=== PATIENT | female | born 1980 | race Caucasian/White ===

== ENCOUNTER 2018-10-12 16:32 | Emergency (ER) | payer SELFPAY ==
--- NOTE | 2018-10-12 17:28 | ER Document Report ---
ED Medical Screen (RME) - General Chief Complaint: Skin Problem Stated Complaint: POSSIBLE BUG BITE Time Seen by Provider: 10/12/18 17:24 - HPI Notes: 10/12/18 17:27 Patient is a 38-year-old female with history of Crohn's who presents complaining of continued infection to her left lower anterior leg with occasional purulence, scabbing, redness, and warmth that is been present for about 3 weeks. Patient states that it started as a small area and then has continued to spread and get worse despite 2 visits to [facility] and being placed once on Bactrim and the second time on Keflex. Denies SINHA, fever, neck pain, URI, CP, SOB, Abd pain, dysuria, back pain. I have treated and performed a rapid initial assessment of this patient. A comprehensive ED assessment and evaluation of the patient, analysis of test results and completion of medical decision making process will be conducted by additional ED providers. PHYSICAL EXAMINATION: GENERAL: Well-appearing, well-nourished and in no acute distress. A&Ox4. Answers questions appropriately. LUNGS: Breath sounds clear to auscultation bilaterally and equal. No wheezes rales or rhonchi. HEART: Regular rate and rhythm without murmurs, rubs, gallops. Lt LE: + Erythema, warmth, mild induration, open wound areas without passively active purulence noted at this time. No streaks. - Related Data Allergies/Adverse Reactions: hydrocodone Adverse Reaction (Verified 10/12/18 16:38) Physical Exam - Vital signs Vitals: Temp Pulse Resp BP Pulse Ox 98.2 F 94 18 123/84 98 10/12/18 16:35 10/12/18 16:35 10/12/18 16:35 10/12/18 16:35 10/12/18 16:35 Course - Vital Signs Vital signs: Temp Pulse Resp BP Pulse Ox 98.2 F 94 18 123/84 98 10/12/18 16:35 10/12/18 16:35 10/12/18 16:35 10/12/18 16:35 10/12/18 16:35
[2018-10-12] MEDS ORDERED: CLINDAMYCIN 600 MG/D5W RTU 600 MG/50 ML RTUPB IV ONE (17:29)
--- NOTE | 2018-10-12 17:56 | RADIOLOGY REPORT (SQ) ---
EXAM DESCRIPTION: TIBIA FIBULA LEFT COMPLETED DATE/TIME: 10/12/2018 5:45 pm REASON FOR STUDY: left lower anterior leg infection COMPARISON: None. NUMBER OF VIEWS: Two views. TECHNIQUE: Two radiographic images acquired of the left tibia and fibula to include the knee and ank le in at least one projection. LIMITATIONS: None. FINDINGS: MINERALIZATION: Normal. BONES: No acute fracture or dislocation. No worrisome bone lesions. SOFT TISSUES: No radiopaque foreign body. OTHER: No other significant finding. IMPRESSION: NO RADIOGRAPHIC EVIDENCE OF ACUTE INJURY. TECHNICAL DOCUMENTATION: JOB ID: [id number] [id number] 2010 [employer]- All Rights Reserved Reading location - IP/workstation name: [email or web address]
[2018-10-12 18:13] LABS: ABSOLUTE BASOPHILS # (AUTO) 0.1 10^3/uL (0.0-0.2); ABSOLUTE EOSINOPHILS # (AUTO) 0.2 10^3/uL (0.0-0.6); ABSOLUTE LYMPHOCYTES (AUTO) 1.8 10^3/uL (0.5-4.7); ABSOLUTE MONOCYTES (AUTO) 0.7 10^3/uL (0.1-1.4); BASOPHILS % (AUTO) 0.7 % (0-2); EOSINOPHILS % (AUTO) 1.8 % (0-6); HEMOGLOBIN 12.9 g/dL (12.0-15.5); LYMPHOCYTES % (AUTO) 20.6 % (13-45); MEAN CORPUSCULAR HGB CONC 33.1 g/dL (32.0-36.0); MEAN CORPUSCULAR VOLUME 85 fl (80-97); MONOCYTES % (AUTO) 8.5 % (3-13); PLATELET COUNT 448 10^3/uL (150-450); RED BLOOD COUNT 4.61 10^6/uL (3.72-5.28); RED CELL DISTRIBUTION WIDTH 18.2 % (11.5-14.0); SEGMENTED NEUTROPHILS % (AUTO) 68.4 % (42-78); TOTAL CELLS COUNTED % (AUTO) 100 %; WHITE BLOOD COUNT 8.8 10^3/uL (4.0-10.5)
[2018-10-12 18:28] LABS: ANION GAP 9 (5-19); BLOOD UREA NITROGEN 8 mg/dL (7-20); CALCIUM 10.1 mg/dL (8.4-10.2); CARBON DIOXIDE 27 mmol/L (22-30); CHLORIDE 102 mmol/L (98-107); GLUCOSE 77 mg/dL (75-110); POTASSIUM 4.1 mmol/L (3.6-5.0); SODIUM 138.2 mmol/L (137-145)
--- NOTE | 2018-10-12 20:08 | ER Document Report ---
ED General - General Chief Complaint: Skin Problem Stated Complaint: POSSIBLE BUG BITE Time Seen by Provider: 10/12/18 17:24 Mode of Arrival: Ambulatory Information source: Patient TRAVEL OUTSIDE OF THE U.[place] IN LAST 30 DAYS: No - HPI Patient complains to provider of: Cellulitis Onset: Other - 3 weeks - Related Data Allergies/Adverse Reactions: hydrocodone Adverse Reaction (Verified 10/12/18 16:38) Past Medical History - Social History Smoking Status: Current Every Day Smoker Chew tobacco use (# tins/day): No Frequency of alcohol use: Rare Drug Abuse: None Patient has suicidal ideation: No Patient has homicidal ideation: No Renal/ Medical History: Denies: Hx Peritoneal Dialysis Physical Exam - Vital signs Vitals: Temp Pulse Resp BP Pulse Ox 98.2 F 94 18 123/84 98 10/12/18 16:35 10/12/18 16:35 10/12/18 16:35 10/12/18 16:35 10/12/18 16:35 Course - Vital Signs Vital signs: Temp Pulse Resp BP Pulse Ox 98.2 F 94 18 123/84 98 10/12/18 16:35 10/12/18 16:35 10/12/18 16:35 10/12/18 16:35 10/12/18 16:35 - Laboratory Result Diagrams: 10/12/18 17:49 10/12/18 17:49 Laboratory results interpreted by me: 10/12/18 10/12/18 17:49 17:49 RDW 18.2 H Creatinine 0.41 L
--- NOTE | 2018-10-12 20:22 | ER Document Report ---
ED General - General Chief Complaint: Skin Problem Stated Complaint: POSSIBLE BUG BITE Time Seen by Provider: 10/12/18 17:24 Mode of Arrival: Ambulatory Information source: Patient TRAVEL OUTSIDE OF THE [place] IN LAST 30 DAYS: No - HPI Patient complains to provider of: Left lower leg infection Onset: Other - 3 weeks Onset/Duration: Constant Quality of pain: Sharp Pain Level: 4 Associated symptoms: denies: Chills, Fever Exacerbated by: Denies Relieved by: Denies Similar symptoms previously: No Recently seen / treated by doctor: No Notes: 38-year-old female with history of Crohn's disease but not on any immune modulating drugs coming in today redness swelling and ulcers and cellulitis. No fevers or chills. Has tried Keflex and Bactrim to no avail. - Related Data Allergies/Adverse Reactions: hydrocodone Adverse Reaction (Verified 10/12/18 16:38) Past Medical History - General Information source: Patient - Social History Smoking Status: Current Every Day Smoker Chew tobacco use (# tins/day): No Frequency of alcohol use: Rare Drug Abuse: None Family History: Reviewed & Not Pertinent Patient has suicidal ideation: No Patient has homicidal ideation: No Renal/ Medical History: Denies: Hx Peritoneal Dialysis Review of Systems - Review of Systems Notes: Constitutional: No fevers. No chills. EENT: No eye redness. No eye pain. No ear pain. No sore throat. Cardiovascular: No chest pain. No palpitations. Respiratory: No cough. No shortness of breath. No respiratory distress. Gastrointestinal: No abdominal pain. No nausea, vomiting, or diarrhea. Genitourinary: Atraumatic. No lesions. No pain. No discharge. Musculoskeletal: Atraumatic. No swelling. No deformities. Skin: Positive infection left lower leg Lymphatic: No swollen lymph nodes. Neurologic: No headache. No syncope. Psychiatric: No suicidal or homicidal ideation. Physical Exam - Vital signs Vitals: Temp Pulse Resp BP Pulse Ox 98.2 F 94 18 123/84 98 10/12/18 16:35 10/12/18 16:35 10/12/18 16:35 10/12/18 16:35 10/12/18 16:35 - Notes Notes: General: Well-developed, well-nourished. In no acute distress. Non-toxic appearing. Cardiac: Well-perfused. Regular rate and rhythm. No murmurs, rubs, or gallops. Pulmonary: No respiratory distress. No cyanosis. Bilateral lung fiels are clear to auscultation. Abdominal: Non-distended. Non-rigid. Bowels sounds are present in all four quadrants. No guarding or rebound. HEENT: Head is atraumatic. Conjunctivae not reddened. No tearing. PERRL. EOMI. Orbits atraumatic. No periorbital swelling or erythema. Oropharynx is without erythema, swelling, or exudates. Neck: Supple. No adenopathy. No meningismus. Dermatologic: Warm with good turgor. No rash. Atraumatic. Chest: Atraumatic. No chest wall tenderness to palpation. Musculoskeletal: Redness warmth and multiple shallow ulcers to the left lower tib-fib region. Distal neurovascular exam is intact Genitourinary: Examination deferred Neurologic: No gross neurologic deficits. Psychiatric: Normal mood. Course - Re-evaluation Re-evalutation: 10/12/18 20:31 Lab work is reassuring. Will discharge home on clindamycin and pain medication recheck 2 days - Vital Signs Vital signs: Temp Pulse Resp BP Pulse Ox 98.2 F 94 18 123/84 98 10/12/18 16:35 10/12/18 16:35 10/12/18 16:35 10/12/18 16:35 10/12/18 16:35 - Laboratory Result Diagrams: 10/12/18 17:49 10/12/18 17:49 Laboratory results interpreted by me: 10/12/18 10/12/18 17:49 17:49 RDW 18.2 H Creatinine 0.41 L Discharge - Discharge Clinical Impression: Lower extremity cellulitis Qualifiers: Laterality: left Qualified Code(s): L03.116 - Cellulitis of left lower limb Condition: Good Disposition: HOME, SELF-CARE Instructions: Cellulitis ([facility]) Prescriptions: Hydrocodone/Acetaminophen [[place] 5-325 mg Tablet] 1 tab PO Q6HP PRN #12 tablet PRN Reason: Clindamycin HCl 300 mg PO Q6H 10 Days #40 capsule Referrals: [facility] [Provider Group] - Follow up as needed
[2018-10-12 20:54] VITALS: BP 111/62
== END 2018-10-12 20:56 | disposition home or self-care (01) ==
LOC: ER 16:32
DX: L03.116 Cellulitis of left lower limb (principal); F17.200 Nicotine dependence, unspecified, uncomplicated; Z88.6 Allergy status to analgesic agent
CPT/HCPCS: 36415; 80048; 85025; 87070; 87205; 96365; 99283

== ENCOUNTER 2018-10-25 11:37 | Emergency (ER) | payer SELFPAY ==
[2018-10-25 11:45] VITALS: BP 124/70
--- NOTE | 2018-10-25 13:02 | ER Document Report ---
ED Medical Screen (RME) - General Chief Complaint: Rash Stated Complaint: RASH Time Seen by Provider: 10/25/18 12:31 Mode of Arrival: Wheelchair Information source: Patient Notes: She presents to the emergency department with enlarging wound to her left lower leg started 1 month ago. Patient reports she has been on 3 different antibiotics. Evaluated at [facility] twice and here at [facility] once. Reports site is larger. Erythema with dark areas noted. Several irregular dark open wounds noted. patient complains of severe pain. Denies fever. Denies IV drug use. I have greeted and performed a rapid initial assessment of this patient. A comprehensive ED assessment and evaluation of the patient, analysis of test results and completion of the medical decision making process will be conducted by additional ED providers. Dictation of this chart was performed using voice recognition software; therefore, there may be some unintended grammatical errors. TRAVEL OUTSIDE OF THE U.S. IN LAST 30 DAYS: No - Related Data Allergies/Adverse Reactions: hydrocodone Adverse Reaction (Verified 10/12/18 16:38) Past Medical History Renal/ Medical History: Denies: Hx Peritoneal Dialysis Past Surgical History: Reports: Hx Abdominal Surgery - bowel resection, Hx Appendectomy, Hx Bowel Surgery, Hx Hysterectomy, Hx Tonsillectomy Physical Exam - Vital signs Vitals: Temp Pulse Resp BP Pulse Ox 98.3 F 77 16 124/70 99 10/25/18 11:43 10/25/18 11:43 10/25/18 11:43 10/25/18 11:43 10/25/18 11:43 Course - Vital Signs Vital signs: Temp Pulse Resp BP Pulse Ox 98.3 F 77 16 124/70 99 10/25/18 11:43 10/25/18 11:43 10/25/18 11:43 10/25/18 11:43 10/25/18 11:43
--- NOTE | 2018-10-25 13:48 | RADIOLOGY REPORT (SQ) ---
EXAM DESCRIPTION: TIBIA FIBULA LEFT COMPLETED DATE/TIME: 10/25/2018 1:26 pm REASON FOR STUDY: wound, pain COMPARISON: 10/12/2018 NUMBER OF VIEWS: Two views. TECHNIQUE: Two radiographic images acquired of the left tibia and fibula to include the knee and ank le in at least one projection. LIMITATIONS: None. FINDINGS: MINERALIZATION: Normal. BONES: No acute fracture or dislocation. No worrisome bone lesions. SOFT TISSUES: No obvious swelling or foreign body. OTHER: No other significant finding. IMPRESSION: NEGATIVE STUDY OF THE LEFT TIBIA AND FIBULA. NO RADIOGRAPHIC EVIDENCE OF ACUTE INJURY. TECHNICAL DOCUMENTATION: JOB ID: [id number] [employer]- All Rights Reserved Reading location - IP/workstation name: [email or web address]
[2018-10-25 14:07] LABS: ABSOLUTE BASOPHILS # (AUTO) 0.1 10^3/uL (0.0-0.2); ABSOLUTE EOSINOPHILS # (AUTO) 0.1 10^3/uL (0.0-0.6); ABSOLUTE LYMPHOCYTES (AUTO) 1.6 10^3/uL (0.5-4.7); ABSOLUTE MONOCYTES (AUTO) 0.4 10^3/uL (0.1-1.4); ABSOLUTE NEUT (AUTO) 6.7 10^3/uL (1.7-8.2); BASOPHILS % (AUTO) 0.6 % (0-2); EOSINOPHILS % (AUTO) 1.6 % (0-6); HEMATOCRIT 39.9 % (36.0-47.0); HEMOGLOBIN 13.6 g/dL (12.0-15.5); LYMPHOCYTES % (AUTO) 18.1 % (13-45); MEAN CORPUSCULAR HEMOGLOBIN 28.4 pg (27.0-33.4); MEAN CORPUSCULAR VOLUME 83 fl (80-97); MONOCYTES % (AUTO) 4.8 % (3-13); PLATELET COUNT 414 10^3/uL (150-450); RED BLOOD COUNT 4.78 10^6/uL (3.72-5.28); RED CELL DISTRIBUTION WIDTH 16.5 % (11.5-14.0); SEGMENTED NEUTROPHILS % (AUTO) 74.9 % (42-78); TOTAL CELLS COUNTED % (AUTO) 100 %
[2018-10-25 14:12] LABS: APPEARANCE,URINE SLIGHTLY-CLOUDY; BILIRUBIN,URINE NEGATIVE (NEGATIVE); COLOR,URINE YELLOW; GLUCOSE, URINE NEGATIVE (NEGATIVE); KETONES,URINE NEGATIVE (NEGATIVE); LEUKOCYTE ESTERASE,URINE TRACE (NEGATIVE); NITRITE,URINE NEGATIVE (NEGATIVE); PROTEIN,URINE NEGATIVE (NEGATIVE); URINE SPECIFIC GRAVITY 1.011; UROBILINOGEN,URINE NEGATIVE mg/dL (<2.0)
[2018-10-25 14:28] LABS: ALANINE AMINOTRANSFERASE 15 U/L (9-52); ALBUMIN 4.2 g/dL (3.5-5.0); ALKALINE PHOSPHATASE 75 U/L (38-126); ANION GAP 8 (5-19); ASPARTATE AMINO TRANSFERASE 17 U/L (14-36); BILIRUBIN,DIRECT 0.2 mg/dL (0.0-0.4); BILIRUBIN,TOTAL 0.2 mg/dL (0.2-1.3); BLOOD UREA NITROGEN 4 mg/dL (7-20); CALCIUM 8.9 mg/dL (8.4-10.2); CARBON DIOXIDE 27 mmol/L (22-30); CHLORIDE 105 mmol/L (98-107); GLUCOSE 91 mg/dL (75-110); POTASSIUM 3.3 mmol/L (3.6-5.0); SODIUM 140.1 mmol/L (137-145); TOTAL PROTEIN 7.9 g/dL (6.3-8.2)
[2018-10-25 18:16] LABS: URINE AMPHETAMINES SCREEN NEGATIVE; URINE BARBITURATES SCREEN NEGATIVE; URINE BENZODIAZEPINES SCREEN NEGATIVE; URINE COCAINE SCREEN NEGATIVE; URINE MARIJUANA (THC) SCREEN NEGATIVE; URINE METHADONE SCREEN NEGATIVE; URINE PHENCYCLIDINE SCREEN NEGATIVE
[2018-10-25] MEDS ORDERED: METHYLPREDNISOLONE INJ 125 MG/2 ML SDV IV ONE (18:22)
[2018-10-25] MEDS ORDERED: MORPHINE SULFATE 10 MG/ML INJ IV ONE (18:22)
[2018-10-25] MEDS ORDERED: ONDANSETRON HCL INJ/PF 4 MG/2 ML SDV IV ONE (18:22)
--- NOTE | 2018-10-25 19:04 | ER Document Report ---
ED General - General Chief Complaint: Rash Stated Complaint: RASH Time Seen by Provider: 10/25/18 12:31 Mode of Arrival: Wheelchair TRAVEL OUTSIDE OF THE [place]. IN LAST 30 DAYS: No - HPI Notes: Patient is a 38-year-old female who presents to the emergency department for evaluation of pain and wounds on her left leg. She states this started as 1 almost puncture wound appearing site. She denies any injury. She states that she is developed several more ulcerations that have become confluent. She states that she has been on multiple rounds of antibiotics without improvement. She was seen here once, advised it [place] months. She denies any fevers or chills. She denies any nausea or vomiting. She just moved to the area. She currently does not have any medical coverage, is awaiting Medicaid approval. She has a history of Crohn's disease. She does not have frequent flares. She did have a colostomy that was reversed about a year ago. She denies any abdominal pain. No other acute complaints or concerns. - Related Data Allergies/Adverse Reactions: hydrocodone Adverse Reaction (Verified 10/12/18 16:38) Past Medical History - General Information source: Patient - Social History Smoking Status: Current Every Day Smoker Frequency of alcohol use: None Drug Abuse: None Family History: Reviewed & Not Pertinent Patient has suicidal ideation: No Patient has homicidal ideation: No Renal/ Medical History: Denies: Hx Peritoneal Dialysis GI Medical History: Reports: Hx Crohn's Disease Past Surgical History: Reports: Hx Abdominal Surgery - bowel resection, Hx Appendectomy, Hx Bowel Surgery, Hx Hysterectomy, Hx Tonsillectomy Review of Systems - Review of Systems Constitutional: No symptoms reported EENT: No symptoms reported Cardiovascular: No symptoms reported Respiratory: No symptoms reported Gastrointestinal: No symptoms reported Genitourinary: No symptoms reported Musculoskeletal: No symptoms reported Skin: No symptoms reported Neurological/Psychological: No symptoms reported Physical Exam - Vital signs Vitals: Temp Pulse Resp BP Pulse Ox 98.3 F 77 16 124/70 99 10/25/18 11:43 10/25/18 11:43 10/25/18 11:43 10/25/18 11:43 10/25/18 11:43 - Notes Notes: Vital signs reviewed, please refer to chart. Head is normocephalic, atraumatic. Pupils equal round, reactive to light. Neck is supple without meningismus. Heart is regular rate and rhythm. Lungs are clear to auscultation bilaterally. Abdomen is soft, nontender, normoactive bowel sounds throughout. Extremities without cyanosis, clubbing. Posterior calves are nontender. Peripheral pulses are equal. Examination of the skin yields no chronic appearing ulcerations to the left anterior [place]. There is some surrounding erythema but it appears more reactive. There is markedly tenderness. There is necrotic appearing tissue under healthy appearing skin as well. Neurovascularly intact distally. Course - Re-evaluation Re-evalutation: 10/25/18 19:00 Presents to the emergency department for evaluation. Laboratory investigations as ordered through triage. X-ray was found to be negative as well. 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 I explained her the importance of getting GI follow-up and control of her Crohn's disease. She voiced understanding to this. She was given IV Solu-Medrol. I will send her home with a prednisone taper, referral on to [facility]. She is to return to the ED with worsening or new concerning symptoms of any sort. - Vital Signs Vital signs: Temp Pulse Resp BP Pulse Ox 98.3 F 77 16 124/70 99 10/25/18 11:43 10/25/18 11:43 10/25/18 11:43 10/25/18 11:43 10/25/18 11:43 - Laboratory Result Diagrams: 10/25/18 13:44 10/25/18 13:44 Laboratory results interpreted by me: 10/25/18 10/25/18 10/25/18 13:44 13:44 13:44 RDW 16.5 H Potassium 3.3 L BUN 4 L Creatinine 0.44 L Ur Leukocyte Esterase TRACE H Discharge - Discharge Clinical Impression: Pyoderma gangrenosum Condition: Stable Disposition: HOME, SELF-CARE Additional Instructions: Your diagnosis today is likely pyoderma gangrenosum. This is related to your Crohn's disease. He will be treated with steroids, please take them all until they are gone. You can start these medications tomorrow. Keep wounds clean with soap and water. Follow-up with [facility], referral information is below. Return to the emergency department with worsening or new concerning symptoms.
== END 2018-10-25 19:19 | disposition home or self-care (01) ==
LOC: ER 11:37
DX: K50.90 Crohn's disease, unspecified, without complications (principal); L88 Pyoderma gangrenosum; F17.200 Nicotine dependence, unspecified, uncomplicated; Z90.710 Acquired absence of both cervix and uterus
CPT/HCPCS: 99283; 96374; 96375; 36415; 87040; 84703; 85025; 81025; 80053; 81001; 80307; 73590; J2930; J2270; J2405

== ENCOUNTER 2019-03-14 19:18 | Emergency (ER) | payer OTHER ==
[2019-03-14] MEDS ORDERED: ONDANSETRON 4 MG TAB.RAPDIS PO ONE (19:58)
[2019-03-14] MEDS ORDERED: DICYCLOMINE HCL 20 MG TABLET PO ONE (19:58)
--- NOTE | 2019-03-14 20:00 | ER Document Report ---
ED Medical Screen (RME) - General Chief Complaint: Abdominal Pain Stated Complaint: ABDOMINAL PAIN,NAUSEA,DIARRHEA,HAS CROHNS Time Seen by Provider: 03/14/19 19:50 Notes: Patient is a 38-year-old female who presents the emergency department with a chief complaint of right lower quadrant abdominal pain. Patient states that it started around 130 last night. When she got home from work she used heating pad to help with the pain. Patient started last menstrual cycle was in 2006, as she had a partial hysterectomy. Patient states that she still has both ovaries. Patient has a history of Crohn's disease and had an appendectomy when she had a bowel resection at that time. Patient states that the pain goes from her right lower quadrant and moves line to her navel. She denies any dysuria. Exam: Tender right lower quadrant abdomen. I have greeted and performed a rapid initial assessment of this patient. A comprehensive ED assessment and evaluation of the patient, analysis of test results and completion of medical decision making process will be conducted by an additional ED providers. TRAVEL OUTSIDE OF THE U.S. IN LAST 30 DAYS: No - Related Data Allergies/Adverse Reactions: hydrocodone Adverse Reaction (Verified 10/12/18 16:38) Past Medical History - Social History Chew tobacco use (# tins/day): No Frequency of alcohol use: Rare Drug Abuse: None Renal/ Medical History: Denies: Hx Peritoneal Dialysis GI Medical History: Reports: Hx Crohn's Disease Past Surgical History: Reports: Hx Abdominal Surgery - bowel resection, Hx Appendectomy, Hx Bowel Surgery, Hx Hysterectomy, Hx Tonsillectomy Physical Exam - Vital signs Vitals: Temp Pulse BP Pulse Ox 97.7 F 87 114/80 99 03/14/19 19:26 03/14/19 19:26 03/14/19 19:26 03/14/19 19:26 Course - Vital Signs Vital signs: Temp Pulse Resp BP Pulse Ox 97.7 F 87 114/80 99 03/14/19 19:26 03/14/19 19:26 03/14/19 19:26 03/14/19 19:26
[2019-03-14 20:40] LABS: ABSOLUTE EOSINOPHILS # (AUTO) 0.1 10^3/uL (0.0-0.6); ABSOLUTE LYMPHOCYTES (AUTO) 1.4 10^3/uL (0.5-4.7); ABSOLUTE MONOCYTES (AUTO) 0.8 10^3/uL (0.1-1.4); BASOPHILS % (AUTO) 0.4 % (0-2); HEMOGLOBIN 14.5 g/dL (12.0-15.5); LYMPHOCYTES % (AUTO) 12.3 % (13-45); MEAN CORPUSCULAR HEMOGLOBIN 29.3 pg (27.0-33.4); MEAN CORPUSCULAR HGB CONC 33.9 g/dL (32.0-36.0); MEAN CORPUSCULAR VOLUME 87 fl (80-97); MONOCYTES % (AUTO) 7.1 % (3-13); PLATELET COUNT 306 10^3/uL (150-450); RED BLOOD COUNT 4.97 10^6/uL (3.72-5.28); RED CELL DISTRIBUTION WIDTH 14.9 % (11.5-14.0); SEGMENTED NEUTROPHILS % (AUTO) 79.2 % (42-78); TOTAL CELLS COUNTED % (AUTO) 100 %; WHITE BLOOD COUNT 11.4 10^3/uL (4.0-10.5)
[2019-03-14 20:41] LABS: APPEARANCE,URINE CLEAR; BILIRUBIN,URINE NEGATIVE (NEGATIVE); COLOR,URINE YELLOW; GLUCOSE, URINE NEGATIVE (NEGATIVE); KETONES,URINE NEGATIVE (NEGATIVE); LEUKOCYTE ESTERASE,URINE NEGATIVE (NEGATIVE); NITRITE,URINE NEGATIVE (NEGATIVE); PROTEIN,URINE NEGATIVE (NEGATIVE); UROBILINOGEN,URINE NEGATIVE mg/dL (<2.0)
[2019-03-14 21:04] LABS: ALBUMIN 4.4 g/dL (3.5-5.0); ALKALINE PHOSPHATASE 60 U/L (38-126); ANION GAP 10 (5-19); ASPARTATE AMINO TRANSFERASE 23 U/L (14-36); BILIRUBIN,DIRECT 0.1 mg/dL (0.0-0.4); BILIRUBIN,TOTAL 0.3 mg/dL (0.2-1.3); BLOOD UREA NITROGEN 11 mg/dL (7-20); CALCIUM 9.5 mg/dL (8.4-10.2); CARBON DIOXIDE 25 mmol/L (22-30); CHLORIDE 107 mmol/L (98-107); GLUCOSE 84 mg/dL (75-110); POTASSIUM 4.3 mmol/L (3.6-5.0); TOTAL PROTEIN 7.5 g/dL (6.3-8.2)
--- NOTE | 2019-03-14 22:44 | ER Document Report ---
ED GI/ - General Chief Complaint: Abdominal Pain Stated Complaint: ABDOMINAL PAIN,NAUSEA,DIARRHEA,HAS CROHNS Time Seen by Provider: 03/14/19 19:50 Mode of Arrival: Ambulatory Information source: Patient Notes: Patient is a 38-year-old female who presents the emergency department with a chief complaint of right lower quadrant abdominal pain. Patient states that it started around 130 last night. When she got home from work she used heating pad to help with the pain. Patient started last menstrual cycle was in 2006, as she had a partial hysterectomy. Patient states that she still has both ovaries. Patient has a history of Crohn's disease and had an appendectomy when she had a bowel resection at that time. Patient states that the pain goes from her right lower quadrant and moves line to her navel. She denies any dysuria. TRAVEL OUTSIDE OF THE [place] IN LAST 30 DAYS: No - Related Data Allergies/Adverse Reactions: hydrocodone Adverse Reaction (Verified 10/12/18 16:38) Past Medical History - General Information source: Patient - Social History Smoking Status: Current Every Day Smoker Chew tobacco use (# tins/day): No Frequency of alcohol use: Rare Drug Abuse: None Family History: Reviewed & Not Pertinent Patient has suicidal ideation: No Patient has homicidal ideation: No Renal/ Medical History: Denies: Hx Peritoneal Dialysis GI Medical History: Reports: Hx Crohn's Disease Past Surgical History: Reports: Hx Abdominal Surgery - bowel resection, Hx Appendectomy, Hx Bowel Surgery, Hx Hysterectomy - paritial, Hx Tonsillectomy Review of Systems - Review of Systems Constitutional: No symptoms reported. denies: Fever EENT: No symptoms reported Cardiovascular: No symptoms reported Respiratory: No symptoms reported Gastrointestinal: Abdominal pain, Nausea, Vomiting Genitourinary: No symptoms reported Female Genitourinary: No symptoms reported Musculoskeletal: No symptoms reported Skin: No symptoms reported Hematologic/Lymphatic: No symptoms reported Neurological/Psychological: No symptoms reported Physical Exam - Vital signs Vitals: Temp Pulse BP Pulse Ox 97.7 F 87 114/80 99 03/14/19 19:26 03/14/19 19:26 03/14/19 19:26 03/14/19 19:26 - Notes Notes: PHYSICAL EXAMINATION: GENERAL: Well-appearing, well-nourished and in no acute distress. HEAD: Atraumatic, normocephalic. EYES: Pupils equal round and reactive to light, extraocular movements intact, conjunctiva are normal. ENT: Nares patent, oropharynx clear without exudates. Moist mucous membranes. NECK: Normal range of motion, supple without lymphadenopathy LUNGS: Breath sounds clear to auscultation bilaterally and equal. No wheezes rales or rhonchi. HEART: Regular rate and rhythm without murmurs ABDOMEN: Soft,nondistended abdomen. Generalized tenderness to palpation. No guarding, no rebound. No masses appreciated. Female : deferred Musculoskeletal: Normal range of motion, no pitting or edema. No cyanosis. NEUROLOGICAL: Cranial nerves grossly intact. Normal speech, normal gait. Normal sensory, motor exams PSYCH: Normal mood, normal affect. SKIN: Warm, Dry, normal turgor, no rashes or lesions noted. Course - Re-evaluation Re-evalutation: Laboratory 03/14/19 03/14/19 03/14/19 20:08 20:08 20:08 WBC 11.4 H RBC 4.97 Hgb 14.5 Hct 43.0 MCV 87 MCH 29.3 MCHC 33.9 RDW 14.9 H Plt Count 306 Lymph % (Auto) 12.3 L [place] % (Auto) 7.1 Eos % (Auto) 1.0 Baso % (Auto) 0.4 Absolute Neuts (auto) 9.0 H Absolute Lymphs (auto) 1.4 Absolute Monos (auto) 0.8 Absolute Eos (auto) 0.1 Absolute Basos (auto) 0.0 Seg Neutrophils % 79.2 H Sodium 142.2 Potassium 4.3 Chloride 107 Carbon Dioxide 25 Anion Gap 10 BUN 11 Creatinine 0.58 Est GFR ( Amer) > 60 Est GFR (MDRD) Non-Af > 60 Glucose 84 Calcium 9.5 Total Bilirubin 0.3 Direct Bilirubin 0.1 Neonat Total Bilirubin Not Reportable Neonat Direct Bilirubin Not Reportable Neonat Indirect Bili Not Reportable AST 23 ALT 16 Alkaline Phosphatase 60 Total Protein 7.5 Albumin 4.4 Lipase 69.5 Urine Color YELLOW Urine Appearance CLEAR Urine pH 5.0 Ur Specific [place] 1.020 Urine Protein NEGATIVE Urine Glucose (UA) NEGATIVE Urine Ketones NEGATIVE Urine Blood MODERATE H Urine Nitrite NEGATIVE Urine Bilirubin NEGATIVE Urine Urobilinogen NEGATIVE Ur Leukocyte Esterase NEGATIVE Urine WBC (Auto) 2 Urine RBC (Auto) 3 Squamous Epi Cells Auto 1 Urine Mucus (Auto) RARE Urine Ascorbic Acid NEGATIVE Abdomen/Pelvis CT 03/14/19 22:43 IMPRESSION: Acute focal colitis involving the descending colon. Patient appears well, nontoxic and has not vomited while here in the emergency department. She can tolerate p.o. fluids. She will be sent home with strict ED return precautions and close follow-up with primary care and gastroenterology. Patient is agreeable to this plan. She will be sent home with a prescription for antiemetics. The patient's emergency department workup and current diagnosis were explained to the patient and or family. Follow-up instructions were provided. Medications if prescribed were discussed. Instructions for when to return to the emergency department including specific worrisome symptoms were discussed with the patient and/or family. - Vital Signs Vital signs: Temp Pulse Resp BP Pulse Ox 98 F 66 16 101/68 99 03/15/19 01:34 03/15/19 01:34 03/15/19 01:34 03/15/19 01:34 03/15/19 01:34 - Laboratory Result Diagrams: 03/14/19 20:08 03/14/19 20:08 Laboratory results interpreted by me: 03/14/19 03/14/19 20:08 20:08 WBC 11.4 H RDW 14.9 H Lymph % (Auto) 12.3 L Absolute Neuts (auto) 9.0 H Seg Neutrophils % 79.2 H Urine Blood MODERATE H Discharge - Discharge Clinical Impression: Colitis Condition: Stable Disposition: HOME, SELF-CARE Additional Instructions: Colitis, Nonspecific Colitis is an inflammatory disease of the large intestine which affects the lining of the bowel. The cause is uncertain, though it is often caused by an infection. In some cases, the symptoms resolve and can return again in the futu re. Colitis is characterized by abdominal pain, often nausea and vomiting, and either diarrhea or difficulty with bowel movements. Sometimes blood will be present in the bowel movements. Fever is often present as well. Milder cases of colitis can be managed as an outpatient with medications for nausea and vomiting and pain, oral fluid therapy, and perhaps antibiotics, if a bacterial origin is suspected. Antidiarrhea medicine should usually be avoided in colitis. If you have increasing abdominal pain, repeated vomiting, fever, rectal bleeding, or worsening diarrhea, you should return for re-evaluation. Please take nausea medication as prescribed. Push fluids. Please return to the emergency department if you develop worsening abdominal pain, persistent vomiting, develop a fever, blood in your stool or any other concerning symptoms. Please have close follow-up with your primary care provider or [employer] teacher. Prescriptions: Promethazine HCl [Phenergan 25 mg Tablet] 1 - 2 tab PO Q6H PRN #15 tablet PRN Reason: Forms: Return to Work, Treatment of Relative/Child
--- NOTE | 2019-03-14 23:43 | RADIOLOGY REPORT (SQ) ---
CT ABDOMEN PELVIS WITHOUT IV CONTRAST EXAM DATE: 03/14/2019 10:43 PM DIRECTOR TELEVISION NEWS HISTORY: Right-sided abdominal pain with hematuria COMPARISON: None. TECHNIQUE: CT scan of the abdomen and pelvis was performed without IV contrast. This exam was performed according to our departmental dose-optimization program, which includes automated exposure control, adjustment of the mA and/or kV according to patient size and/or use of iterative reconstruction technique. FINDINGS: The lung bases are clear. No pleural or pericardial effusions. Liver, spleen, pancreas, gallbladder, adrenal glands, and kidneys are unremarkable without hydronephrosis. There has been a prior hysterectomy. Evidence of prior bowel surgery. There is focal wall thickening with mild inflammatory stranding involving the descending colon. No free air or free fluid is seen. The aorta is normal caliber. The osseous structures are intact. IMPRESSION: Acute focal colitis involving the descending colon.
[2019-03-15] MEDS ORDERED: ONDANSETRON ODT 4 MG TAB (6 TAB/ER DISP) PO PRN (01:17)
[2019-03-15 01:35] VITALS: BP 101/68
== END 2019-03-15 01:39 | disposition home or self-care (01) ==
LOC: ER 19:18
DX: K52.9 Noninfective gastroenteritis and colitis, unspecified (principal); R11.0 Nausea; R10.31 Right lower quadrant pain; F17.200 Nicotine dependence, unspecified, uncomplicated; Z90.710 Acquired absence of both cervix and uterus
CPT/HCPCS: 99284; 36415; 83690; 85025; 80053; 81001; 74176; J3490; S0119

== ENCOUNTER 2019-08-08 00:55 | Emergency (ER) | payer OTHER ==
[2019-08-08 02:03] LABS: ABSOLUTE BASOPHILS # (AUTO) 0.1 10^3/uL (0.0-0.2); ABSOLUTE EOSINOPHILS # (AUTO) 0.3 10^3/uL (0.0-0.6); ABSOLUTE MONOCYTES (AUTO) 0.9 10^3/uL (0.1-1.4); ABSOLUTE NEUT (AUTO) 7.6 10^3/uL (1.7-8.2); BASOPHILS % (AUTO) 0.6 % (0-2); EOSINOPHILS % (AUTO) 2.8 % (0-6); HEMATOCRIT 39.8 % (36.0-47.0); HEMOGLOBIN 13.9 g/dL (12.0-15.5); LYMPHOCYTES % (AUTO) 18.7 % (13-45); MEAN CORPUSCULAR VOLUME 89 fl (80-97); MONOCYTES % (AUTO) 8.1 % (3-13); PLATELET COUNT 342 10^3/uL (150-450); RED BLOOD COUNT 4.49 10^6/uL (3.72-5.28); RED CELL DISTRIBUTION WIDTH 14.2 % (11.5-14.0); SEGMENTED NEUTROPHILS % (AUTO) 69.8 % (42-78); TOTAL CELLS COUNTED % (AUTO) 100 %; WHITE BLOOD COUNT 10.8 10^3/uL (4.0-10.5)
[2019-08-08 02:20] LABS: ALBUMIN 3.8 g/dL (3.5-5.0); ALKALINE PHOSPHATASE 65 U/L (38-126); ANION GAP 6 (5-19); ASPARTATE AMINO TRANSFERASE 16 U/L (14-36); BILIRUBIN,TOTAL 0.1 mg/dL (0.2-1.3); BLOOD UREA NITROGEN 10 mg/dL (7-20); CALCIUM 9.1 mg/dL (8.4-10.2); CARBON DIOXIDE 24 mmol/L (22-30); CHLORIDE 108 mmol/L (98-107); GLUCOSE 106 mg/dL (75-110); POTASSIUM 3.9 mmol/L (3.6-5.0); TOTAL PROTEIN 6.6 g/dL (6.3-8.2)
[2019-08-08 02:29] LABS: APPEARANCE,URINE CLEAR; BILIRUBIN,URINE NEGATIVE (NEGATIVE); COLOR,URINE YELLOW; GLUCOSE, URINE NEGATIVE (NEGATIVE); KETONES,URINE NEGATIVE (NEGATIVE); LEUKOCYTE ESTERASE,URINE SMALL (NEGATIVE); NITRITE,URINE NEGATIVE (NEGATIVE); PROTEIN,URINE NEGATIVE (NEGATIVE); URINE SPECIFIC GRAVITY 1.026; UROBILINOGEN,URINE NEGATIVE mg/dL (<2.0)
--- NOTE | 2019-08-08 02:35 | ER Document Report ---
ED GI/ - General Chief Complaint: Abdominal Pain Stated Complaint: RIGHT SIDE PAIN Time Seen by Provider: 08/08/19 02:35 Mode of Arrival: Ambulatory Information source: Patient Notes: 39-year-old female with history of Crohn's presenting to the emergency department with lower abdominal pain that has been ongoing for the last week. Patient reports it feels like she is having a Crohn's flareup. She denies any fevers but reports intermittent nausea with vomiting as well as diarrhea. She denies any urinary retention, dysuria, vaginal bleeding or abnormal vaginal discharge. TRAVEL OUTSIDE OF THE [place] IN LAST 30 DAYS: No - Related Data Allergies/Adverse Reactions: hydrocodone Adverse Reaction (Verified 10/12/18 16:38) Past Medical History - General Information source: Patient - Social History Smoking Status: Current Every Day Smoker Chew tobacco use (# tins/day): No Frequency of alcohol use: Occasional Drug Abuse: None Family History: Reviewed & Not Pertinent Patient has suicidal ideation: No Patient has homicidal ideation: No Renal/ Medical History: Denies: Hx Peritoneal Dialysis GI Medical History: Reports: Hx Crohn's Disease Past Surgical History: Reports: Hx Abdominal Surgery - bowel resection, Hx Appendectomy, Hx Bowel Surgery, Hx Hysterectomy - paritial, Hx Tonsillectomy Review of Systems - Review of Systems Gastrointestinal: See HPI -: Yes All other systems reviewed and negative Physical Exam - Vital signs Vitals: Temp Pulse Resp BP Pulse Ox 98.1 F 89 18 126/80 H 98 08/08/19 00:58 08/08/19 00:58 08/08/19 00:58 08/08/19 00:58 08/08/19 00:58 - Notes Notes: PHYSICAL EXAMINATION: GENERAL: Well-appearing, well-nourished and in no acute distress. HEAD: Atraumatic, normocephalic. EYES: Pupils equal round and reactive to light, extraocular movements intact, conjunctiva are normal. ENT: Nares patent, oropharynx clear without exudates. Moist mucous membranes. NECK: Normal range of motion, supple without lymphadenopathy LUNGS: Breath sounds clear to auscultation bilaterally and equal. No wheezes rales or rhonchi. HEART: Regular rate and rhythm without murmurs ABDOMEN: Soft, nondistended abdomen. Mild tenderness across the low abdomen. No guarding, no rebound. No masses appreciated. Female : No CVA tenderness Musculoskeletal: Normal range of motion, no pitting or edema. No cyanosis. NEUROLOGICAL: Cranial nerves grossly intact. Normal speech, normal gait. Normal sensory, motor exams PSYCH: Normal mood, normal affect. SKIN: Warm, Dry, normal turgor, no rashes or lesions noted. Course - Re-evaluation Re-evalutation: Laboratory 08/08/19 08/08/19 08/08/19 01:50 01:50 01:50 WBC 10.8 H RBC 4.49 Hgb 13.9 Hct 39.8 MCV 89 MCH 31.0 MCHC 35.0 RDW 14.2 H Plt Count 342 Lymph % (Auto) 18.7 Keith % (Auto) 8.1 Eos % (Auto) 2.8 Baso % (Auto) 0.6 Absolute Neuts (auto) 7.6 Absolute Lymphs (auto) 2.0 Absolute Monos (auto) 0.9 Absolute Eos (auto) 0.3 Absolute Basos (auto) 0.1 Seg Neutrophils % 69.8 Sodium 137.6 Potassium 3.9 Chloride 108 H Carbon Dioxide 24 Anion Gap 6 BUN 10 Creatinine 0.51 L Est GFR ( Amer) > 60 Est GFR (MDRD) Non-Af > 60 Glucose 106 Calcium 9.1 Total Bilirubin 0.1 L Direct Bilirubin 0.0 Neonat Total Bilirubin Not Reportable Neonat Direct Bilirubin Not Reportable Neonat Indirect Bili Not Reportable AST 16 ALT 11 Alkaline Phosphatase 65 Total Protein 6.6 Albumin 3.8 Lipase 123.1 Urine Color Urine Appearance Urine pH Ur Specific Divide Urine Protein Urine Glucose (UA) Urine Ketones Urine Blood Urine Nitrite Urine Bilirubin Urine Urobilinogen Ur Leukocyte Esterase Urine WBC (Auto) Urine RBC (Auto) Squamous Epi Cells Auto Urine Mucus (Auto) Urine Ascorbic Acid 08/08/19 01:58 WBC RBC Hgb Hct MCV MCH MCHC RDW Plt Count Lymph % (Auto) Keith % (Auto) Eos % (Auto) Baso % (Auto) Absolute Neuts (auto) Absolute Lymphs (auto) Absolute Monos (auto) Absolute Eos (auto) Absolute Basos (auto) Seg Neutrophils % Sodium Potassium Chloride Carbon Dioxide Anion Gap BUN Creatinine Est GFR ( Amer) Est GFR (MDRD) Non-Af Glucose Calcium Total Bilirubin Direct Bilirubin Neonat Total Bilirubin Neonat Direct Bilirubin Neonat Indirect Bili AST ALT Alkaline Phosphatase Total Protein Albumin Lipase Urine Color YELLOW Urine Appearance CLEAR Urine pH 5.0 Ur Specific Divide 1.026 Urine Protein NEGATIVE Urine Glucose (UA) NEGATIVE Urine Ketones NEGATIVE Urine Blood SMALL H Urine Nitrite NEGATIVE Urine Bilirubin NEGATIVE Urine Urobilinogen NEGATIVE Ur Leukocyte Esterase SMALL H Urine WBC (Auto) 4 Urine RBC (Auto) 10 Squamous Epi Cells Auto 1 Urine Mucus (Auto) OCC Urine Ascorbic Acid NEGATIVE Work-up today has been reassuring. Labs are unremarkable. Likely Crohn's flareup. Patient will be discharged home on appropriate medications. She states her pain has improved after medications given here in the emergency department. - Vital Signs Vital signs: Temp Pulse Resp BP Pulse Ox 98.2 F 86 15 125/85 99 08/08/19 05:59 08/08/19 05:59 08/08/19 05:59 08/08/19 05:59 08/08/19 05:59 - Laboratory Result Diagrams: 08/08/19 01:50 08/08/19 01:50 Laboratory results interpreted by me: 08/08/19 08/08/19 08/08/19 01:50 01:50 01:58 WBC 10.8 H RDW 14.2 H Chloride 108 H Creatinine 0.51 L Total Bilirubin 0.1 L Urine Blood SMALL H Ur Leukocyte Esterase SMALL H Discharge - Discharge Clinical Impression: Abdominal pain Qualifiers: Abdominal location: unspecified location Qualified Code(s): R10.9 - Unspecified abdominal pain Condition: Stable Disposition: HOME, SELF-CARE Additional Instructions: Crohn's Disease Crohn's disease is an inflammatory disease of the intestines, affecting both the large and small intestine. The cause is unknown. Often there is vague abdominal pain and diarrhea for years before the diagnosis is made. The disease causes spotty thickening and inflammation of the bowel wall. With Crohn's disease, rectal fissures and abscesses are common. So is perforation of the bowel and internal abscess. The disease tends to flare spontaneously, then quiet down again. It never goes away completely. There is no cure for Crohn's disease. Acute flare-ups can be treated with steroids (such as prednisone), sometimes in combination with other medicines. Antibiotics (usually metronidazole) are often helpful. Sulfasalazine can ease the inflammation during flare-ups. Antidiarrhea medicine is taken as needed. Surgery may be needed for intestinal blockage, perforation, or hemorrhage. But surgery doesn't cure the disease -- it comes back in other places. Crohn's disease can cause immune disease in other body parts. Some patients will develop eye inflammation, arthritis, stiffened spine, liver inflammation, or skin disease. Kidney stones are more common in Crohn's patients. Lactose intolerance is common. There is a significant risk of developing a bowel tumor. Call the doctor if you have increasing abdominal pain, repeated vomiting, fever, rectal bleeding, or worsening diarrhea. Prescriptions: Prednisone [Deltasone 20 mg Tablet] 3 tab PO DAILY 5 Days #15 tablet Oxycodone HCl/Acetaminophen [Percocet 5-325 mg Tablet] 1 tab PO Q6H PRN #15 tablet PRN Reason: Ondansetron [Zofran Odt 4 mg Tablet] 1 - 2 tab PO Q4H PRN #15 tab.rapdis PRN Reason: For Nausea/Vomiting
[2019-08-08] MEDS ORDERED: NORMAL SALINE 1000 ML 1,000 ML IV ONE (03:05)
[2019-08-08] MEDS ORDERED: MORPHINE SULFATE 10 MG/ML INJ IV ONE (03:05)
[2019-08-08] MEDS ORDERED: ONDANSETRON HCL INJ/PF 4 MG/2 ML SDV IV ONE (03:05)
[2019-08-08] MEDS ORDERED: METHYLPREDNISOLONE INJ 125 MG/2 ML SDV IV ONE (03:09)
[2019-08-08 06:00] VITALS: BP 125/85
== END 2019-08-08 05:59 | disposition home or self-care (01) ==
LOC: ER 00:55
DX: R10.9 Unspecified abdominal pain (principal); R10.30 Lower abdominal pain, unspecified; F17.200 Nicotine dependence, unspecified, uncomplicated
CPT/HCPCS: 99284; 96361; 96374; 96375; 36415; 83690; 85025; 80053; 81001; J2930; J2270; J2405; J7030

== ENCOUNTER 2019-11-14 20:39 | Emergency (ER) | payer SELFPAY ==
[2019-11-14] MEDS ORDERED: NORMAL SALINE 1000 ML 1,000 ML IV ONE ×2 (21:47→22:51)
[2019-11-14] MEDS ORDERED: ONDANSETRON HCL INJ/PF 4 MG/2 ML SDV IV ONE (21:48)
[2019-11-14 21:54] LABS: ABSOLUTE EOSINOPHILS # (AUTO) 0.1 10^3/uL (0.0-0.6); ABSOLUTE LYMPHOCYTES (AUTO) 1.5 10^3/uL (0.5-4.7); ABSOLUTE MONOCYTES (AUTO) 0.8 10^3/uL (0.1-1.4); ABSOLUTE NEUT (AUTO) 6.4 10^3/uL (1.7-8.2); BASOPHILS % (AUTO) 0.3 % (0-2); EOSINOPHILS % (AUTO) 1.3 % (0-6); HEMATOCRIT 38.1 % (36.0-47.0); HEMOGLOBIN 13.2 g/dL (12.0-15.5); LYMPHOCYTES % (AUTO) 16.5 % (13-45); MEAN CORPUSCULAR HEMOGLOBIN 30.3 pg (27.0-33.4); MEAN CORPUSCULAR HGB CONC 34.5 g/dL (32.0-36.0); MEAN CORPUSCULAR VOLUME 88 fl (80-97); MONOCYTES % (AUTO) 9.2 % (3-13); PLATELET COUNT 365 10^3/uL (150-450); RED BLOOD COUNT 4.34 10^6/uL (3.72-5.28); RED CELL DISTRIBUTION WIDTH 14.3 % (11.5-14.0); SEGMENTED NEUTROPHILS % (AUTO) 72.7 % (42-78); TOTAL CELLS COUNTED % (AUTO) 100 %; WHITE BLOOD COUNT 8.9 10^3/uL (4.0-10.5)
[2019-11-14 22:12] LABS: APPEARANCE,URINE SLIGHTLY-CLOUDY; BILIRUBIN,URINE NEGATIVE (NEGATIVE); COLOR,URINE YELLOW; GLUCOSE, URINE NEGATIVE (NEGATIVE); KETONES,URINE NEGATIVE (NEGATIVE); LEUKOCYTE ESTERASE,URINE LARGE (NEGATIVE); NITRITE,URINE NEGATIVE (NEGATIVE); PROTEIN,URINE NEGATIVE (NEGATIVE); URINE SPECIFIC GRAVITY 1.009; UROBILINOGEN,URINE NEGATIVE mg/dL (<2.0)
[2019-11-14 22:13] LABS: ALKALINE PHOSPHATASE 89 U/L (38-126); ANION GAP 7 (5-19); ASPARTATE AMINO TRANSFERASE 17 U/L (14-36); BILIRUBIN,TOTAL 0.3 mg/dL (0.2-1.3); BLOOD UREA NITROGEN 9 mg/dL (7-20); CALCIUM 9.5 mg/dL (8.4-10.2); CARBON DIOXIDE 24 mmol/L (22-30); CHLORIDE 102 mmol/L (98-107); CREATINE KINASE 65 U/L (30-135); GLUCOSE 106 mg/dL (75-110); TOTAL PROTEIN 6.8 g/dL (6.3-8.2)
[2019-11-14] MEDS ORDERED: KETOROLAC TROMETHAMINE INJ/PF 30 MG/1 ML SDV IV ONE (23:32)
[2019-11-15 00:39] VITALS: BP 100/56
--- NOTE | 2019-11-15 00:56 | ER Document Report ---
Entered by BRETT TALAVERA SCRIBE 11/14/19 2791 Acting as scribe for:SUDHIR CORRALES DO ED General - General Chief Complaint: Flu Symptoms Stated Complaint: REPORTS DEHYDRATION Time Seen by Provider: 11/14/19 21:46 Information source: Patient Notes: This 39 year old female patient presents to the emergency department today with complaints of being overheated today. Patient had nausea and vomiting prior to arrival which has now subsided. Patient states that she works outside on a daily basis and she thinks she was dehydrated. Of note, it is the summer, and it is been over 90 degrees outside. TRAVEL OUTSIDE OF THE [place] IN LAST 30 DAYS: No - Related Data Allergies/Adverse Reactions: hydrocodone Adverse Reaction (Verified 10/12/18 16:38) Past Medical History - General Information source: Patient - Social History Smoking Status: Current Every Day Smoker Cigarette use (# per day): Yes Chew tobacco use (# tins/day): No Frequency of alcohol use: None Drug Abuse: None Lives with: Family Family History: Reviewed & Not Pertinent Patient has homicidal ideation: No GI Medical History: Reports: Hx Crohn's Disease Past Surgical History: Reports: Hx Abdominal Surgery - bowel resection, Hx Appendectomy, Hx Bowel Surgery, Hx Hysterectomy - paritial, Hx Tonsillectomy Physical Exam - Vital signs Vitals: Temp Pulse Resp BP Pulse Ox 98.6 F 92 16 115/82 99 11/14/19 20:40 11/14/19 20:40 11/14/19 20:40 11/14/19 20:40 11/14/19 20:40 - Notes Notes: Physical Exam: General: Alert, appears well. HEENT: Normocephalic. Atraumatic. PERRL. Extraocular movements intact. Oropharynx clear. Dry mucous membranes. Neck: Supple. Non-tender. Respiratory: No respiratory distress. Clear and equal breath sounds bilaterally. Cardiovascular: Regular rate and rhythm. Abdominal: Normal Inspection. Non-tender. No distension. Normal Bowel Sounds. Back: No gross abnormalities. Extremities: Moves all four extremities. Upper extremities: Normal inspection. Normal ROM. Lower extremities: Normal inspection. No edema. Normal ROM. Neurological: Normal cognition. AAOx4. Normal speech. Psychological: Normal affect. Normal Mood. Skin: Warm. Dry. Normal color. Course - Re-evaluation Re-evalutation: 11/15/19 Patient feels better after fluids and Zofran. Taking p.o. without difficulty. Sodium 132. No COVID-19 symptoms. No other complaints or concerns. Ambulates easily. No lightheadedness. Will need work note. Stable for discharge. Follow-up with PMD. Return if any worsening or concerning symptoms. Understands and agrees with plan. - Vital Signs Vital signs: Temp Pulse Resp BP Pulse Ox 98.2 F 75 17 100/56 L 96 11/15/19 00:38 11/15/19 00:38 11/15/19 00:38 11/15/19 00:38 11/15/19 00:38 - Laboratory Result Diagrams: 11/14/19 21:41 11/14/19 21:41 Laboratory results interpreted by me: 11/14/19 11/14/19 11/14/19 21:41 21:41 21:55 RDW 14.3 H Sodium 132.7 L Creatinine 0.50 L Urine Blood SMALL H Ur Leukocyte Esterase LARGE H Discharge - Discharge Clinical Impression: Dehydration Heat exposure Qualifiers: Encounter type: initial encounter Qualified Code(s): T67.9XXA - Effect of heat and light, unspecified, initial encounter Condition: Stable Disposition: HOME, SELF-CARE Instructions: Dehydration ([facility]), Heat Exhaustion ([facility]) Forms: Return to Work I personally performed the services described in the documentation, reviewed and edited the documentation which was dictated to the scribe in my presence, and it accurately records my words and actions.
--- NOTE | 2019-11-15 09:44 | EKG REPORT ---
SEVERITY:- BORDERLINE ECG - SINUS RHYTHM BORDERLINE T ABNORMALITIES, INFERIOR LEADS : Confirmed by: Radu Hdz 15-Nov-2019 09:44:12
== END 2019-11-15 00:38 | disposition home or self-care (01) ==
LOC: ER 20:39
DX: R11.2 Nausea with vomiting, unspecified (principal); E86.0 Dehydration; T67.9XXA Effect of heat and light, unspecified, initial encounter; F17.210 Nicotine dependence, cigarettes, uncomplicated; X30.XXXA Exposure to excessive natural heat, initial encounter
CPT/HCPCS: 93005; 99284; 96361; 96374; 96375; 36415; 82550; 84702; 85025; 80053; 81001; 93010; J1885; J2405; J7030

== ENCOUNTER 2019-11-19 17:10 | Emergency (ER) | payer SELFPAY ==
[2019-11-19] MEDS ORDERED: NORMAL SALINE 1000 ML 1,000 ML IV ONE (20:20)
[2019-11-19] MEDS ORDERED: ONDANSETRON HCL INJ/PF 4 MG/2 ML SDV IV ONE (20:20)
--- NOTE | 2019-11-19 20:30 | ER Document Report ---
ED GI/ - General Chief Complaint: Nausea/Vomiting Stated Complaint: DIAHERRA/VOMITING/CHILLS/HEADACHE Time Seen by Provider: 11/19/19 19:55 Primary Care Provider: LYDIA DURAND MD [ACTIVE STAFF] - Follow up as needed Notes: CHIEF COMPLAINT: Continued abdominal pain and vomiting HPI: 39-year-old female with Crohn's history presenting for continued abdominal pain and vomiting. States she was seen here several days ago for similar complaints felt she might of been dehydrated from working outside because she had multiple episodes of vomiting which she believed was from the heat. Now with pain across the lower abdomen more prominent in the right lower quadrant region states she has had a prior appendectomy. States this does feel slightly like her Crohn's is felt some constipation. Does not take any medications for Crohn's and is not currently following with anyone for her Crohn's. Patient does report prior history of bowel resection and ileostomy reversal that were [place] out of state ROS: See HPI - all other systems were reviewed and are otherwise negative Constitutional: no fever Eyes: no drainage, no blurred vision ENT: no runny nose, no sore throat Cardiovascular: no chest pain Resp: no SOB, no cough GI: + vomiting, no diarrhea, + abdominal pain : no dysuria Integumentary: no rash Allergy: no hives Musculoskeletal: no extremity pain or swelling Neurological: no numbness/tingling, no weakness MEDICATIONS: I agree with the patient medications as charted by the RN. ALLERGIES: I agree with the allergies as charted by the RN. PAST MEDICAL HISTORY/PAST SURGICAL HISTORY: Reviewed and agree as charted by RN. SOCIAL HISTORY: Reviewed and agree as charted by RN. FAMILY HISTORY: No significant familial comorbid conditions directly related to patient complaint EXAM: Reviewed vital signs as charted by RN. CONSTITUTIONAL: Alert and oriented and responds appropriately to questions. Well-appearing; well-nourished HEAD: Normocephalic; atraumatic EYES: PERRL; Conjunctivae clear, sclerae non-icteric ENT: normal nose; no rhinorrhea; moist mucous membranes; pharynx without lesions noted, no uvula edema or deviation, no tonsillar hypertrophy, phonation normal NECK: Supple without meningismus; non-tender; no cervical lymphadenopathy, no masses CARD: RRR; no murmurs, no clicks, no rubs, no gallops; symmetric distal pulses RESP: Normal chest excursion without splinting or tachypnea; breath sounds clear and equal bilaterally; no wheezes, no rhonchi, no rales, pulse oximetry 100% on room air not hypoxic ABD/GI: Normal bowel sounds; non-distended; soft, mild tenderness to the right lower quadrant on palpation, no rebound, no guarding; no palpable organomegaly or masses. BACK: The back appears normal and is non-tender to palpation, there is no CVA tenderness EXT: Normal ROM in all joints; non-tender to palpation; no cyanosis, no effusions, no edema SKIN: Normal color for age and race; warm; dry; good turgor; no acute lesions noted NEURO: Moves all extremities equally; Motor and sensory function intact PSYCH: The patient's mood and manner are appropriate. Grooming and personal hygiene are appropriate. MDM: 39-year-old female presenting for abdominal pain and vomiting with constipation Crohn's history. Will obtain screening labs and plan for CT imaging to evaluate for possible inflammatory or surgical changes. On review of the patient records it was noted she had a UTI on her last visit that was not treated with antibiotics will recheck urine and urine culture TRAVEL OUTSIDE OF THE [place] IN LAST 30 DAYS: No - Related Data Allergies/Adverse Reactions: hydrocodone Adverse Reaction (Verified 10/12/18 16:38) Past Medical History - Social History Smoking Status: Current Every Day Smoker Family History: Reviewed & Not Pertinent Renal/ Medical History: Denies: Hx Peritoneal Dialysis GI Medical History: Reports: Hx Crohn's Disease Past Surgical History: Reports: Hx Abdominal Surgery - bowel resection, Hx Appendectomy, Hx Bowel Surgery, Hx Hysterectomy - paritial, Hx Tonsillectomy Physical Exam - Vital signs Vitals: Temp Pulse Resp BP Pulse Ox 99.6 F 81 16 132/88 H 100 11/19/19 19:43 11/19/19 19:43 11/19/19 19:43 11/19/19 19:43 11/19/19 19:43 Course - Re-evaluation Re-evalutation: 11/19/19 22:[address] imaging consistent with Crohn's colitis. Will place her on Cipro Flagyl. We will place her on a short course of prednisone. She will be refer red to gastroenterology. I spoke with the patient at length about this. I will still plan to culture the urinalysis but should be treated by the Cipro if positive. Will place her on Zofran for nausea, she can take Percocet for pain. Return for worsening symptoms - Vital Signs Vital signs: Temp Pulse Resp BP Pulse Ox 99.6 F 81 16 132/88 H 100 11/19/19 19:43 11/19/19 19:43 11/19/19 19:43 11/19/19 19:43 11/19/19 19:43 - Laboratory Result Diagrams: 11/19/19 21:48 11/19/19 21:48 Discharge - Discharge Clinical Impression: Crohn's colitis Qualifiers: Digestive disease complication type: without complication Qualified Code(s): K50.10 - Crohn's disease of large intestine without complications Condition: Stable Disposition: HOME, SELF-CARE Additional Instructions: Your CT imaging today was consistent with Crohn's colitis. Take the antibiotics and the steroids as prescribed for this. Follow-up closely with gastroenterology for further evaluation and treatment call for appointment. If you have worsening symptoms please return for reevaluation. Percocet for pain, Zofran for nausea. Prescriptions: Ciprofloxacin HCl [Cipro 500 mg Tablet] 500 mg PO BID #20 tablet Prednisone [Deltasone 20 mg Tablet] 2 tab PO DAILY 5 Days #10 tablet Metronidazole [Flagyl 500 mg Tablet] 500 mg PO BID #14 tablet Oxycodone HCl/Acetaminophen [Percocet 5-325 mg Tablet] 1 tab PO Q4H PRN #15 tab PRN Reason: Ondansetron [Zofran Odt 4 mg Tablet] 1 - 2 tab PO Q4H PRN #15 tab.rapdis PRN Reason: For Nausea/Vomiting Referrals: LYDIA DURAND MD [ACTIVE STAFF] - Follow up as needed
[2019-11-19 22:22] LABS: ABSOLUTE EOSINOPHILS # (AUTO) 0.2 10^3/uL (0.0-0.6); ABSOLUTE NEUT (AUTO) 5.2 10^3/uL (1.7-8.2); BASOPHILS % (AUTO) 0.6 % (0-2); EOSINOPHILS % (AUTO) 2.3 % (0-6); HEMATOCRIT 41.2 % (36.0-47.0); LYMPHOCYTES % (AUTO) 23.7 % (13-45); MEAN CORPUSCULAR HEMOGLOBIN 29.8 pg (27.0-33.4); MEAN CORPUSCULAR VOLUME 88 fl (80-97); MONOCYTES % (AUTO) 11.4 % (3-13); PLATELET COUNT 398 10^3/uL (150-450); RED CELL DISTRIBUTION WIDTH 13.9 % (11.5-14.0); TOTAL CELLS COUNTED % (AUTO) 100 %; WHITE BLOOD COUNT 8.4 10^3/uL (4.0-10.5)
--- NOTE | 2019-11-19 22:37 | RADIOLOGY REPORT (SQ) ---
EXAM DESCRIPTION: CT abdomen and pelvis with contrast CLINICAL HISTORY: 39 years Female, lower abd pain, history of Crohn's disease COMPARISON: CT abdomen and pelvis 03/14/2019 TECHNIQUE: Axial images of the abdomen and pelvis were performed utilizing intravenous contrast, with sagittal and coronal reformatted images. This exam was performed according to our departmental dose-optimization program which includes use of Automated Exposure Control, adjustment of the mA and/or kV according to patient size and/or use of iterative reconstruction technique. FINDINGS: There is wall thickening, with surrounding inflammation/edema, involving the proximal sigmoid colon, compatible with colitis, possibly Crohn's colitis. There is evidence of prior bowel surgery. No evidence of bowel obstruction. There is no significant radiographic abnormality of the liver, spleen, pancreas, adrenal glands or kidneys. No mass or adenopathy. No free air or free fluid. IMPRESSION: Proximal sigmoid colon colitis.
[2019-11-19] MEDS ORDERED: METRONIDAZOLE 500 MG TABLET PO ONE (22:41)
[2019-11-19] MEDS ORDERED: CIPROFLOXACIN HCL 500 MG TABLET PO ONE (22:41)
[2019-11-19] MEDS ORDERED: DEXAMETHASONE SOD PHOS INJ 10 MG/1 ML VIAL IV ONE (22:41)
[2019-11-19 22:46] LABS: ALBUMIN 3.7 g/dL (3.5-5.0); ALKALINE PHOSPHATASE 89 U/L (38-126); ANION GAP 7 (5-19); ASPARTATE AMINO TRANSFERASE 18 U/L (14-36); BILIRUBIN,DIRECT 0.1 mg/dL (0.0-0.4); BILIRUBIN,TOTAL 0.3 mg/dL (0.2-1.3); BLOOD UREA NITROGEN 11 mg/dL (7-20); CALCIUM 9.3 mg/dL (8.4-10.2); CARBON DIOXIDE 27 mmol/L (22-30); CHLORIDE 103 mmol/L (98-107); GLUCOSE 85 mg/dL (75-110); TOTAL PROTEIN 6.5 g/dL (6.3-8.2)
[2019-11-19 23:09] LABS: APPEARANCE,URINE CLEAR; BILIRUBIN,URINE NEGATIVE (NEGATIVE); COLOR,URINE YELLOW; GLUCOSE, URINE NEGATIVE (NEGATIVE); KETONES,URINE TRACE mg/dL (NEGATIVE); LEUKOCYTE ESTERASE,URINE NEGATIVE (NEGATIVE); NITRITE,URINE NEGATIVE (NEGATIVE); PROTEIN,URINE NEGATIVE (NEGATIVE); URINE SPECIFIC GRAVITY 1.039; UROBILINOGEN,URINE NEGATIVE mg/dL (<2.0)
[2019-11-19 23:26] VITALS: BP 129/75
== END 2019-11-19 23:26 | disposition home or self-care (01) ==
LOC: ER 17:10
DX: K50.10 Crohn's disease of large intestine without complications (principal); R11.2 Nausea with vomiting, unspecified; R19.7 Diarrhea, unspecified; R51 Headache; F17.200 Nicotine dependence, unspecified, uncomplicated
CPT/HCPCS: 99284; 96361; 96374; 96375; 36415; 87086; 83690; 84703; 85025; 80053; 81001; 74177; J2405; J7030; J1100